=== PATIENT | male | born 1960 | race Caucasian/White ===

== ENCOUNTER 2018-07-26 22:58 | Inpatient (IN) | payer OTHER ==
[2018-07-27] MEDS ORDERED: ONDANSETRON 4 MG INJ IV (01:00)
[2018-07-27] MEDS ORDERED: ACETAMINOPHEN 325 MG TAB PO (01:00)
[2018-07-27] MEDS ORDERED: VANCOMYCIN IV PER PHARMACY XX (01:00)
[2018-07-27] MEDS: RANITIDINE 150 MG TAB PO ×3 (02:18→20:12)
[2018-07-27] MEDS: NICOTINE (21 MG/24 HR) PATCH TRANSDERM (04:28)
[2018-07-27] MEDS: VANCOMYCIN HCL 1.5 GM in SOD CHLORIDE 0.9% 250 ML IVPB (04:29)
[2018-07-27] MEDS: SOD CHLORIDE 0.45% 1,000 ML IV ×3 (04:29→20:12)
[2018-07-27] MEDS: HYDROCODONE/APAP (5/325) TAB PO ×2 (05:10→18:24)
[2018-07-27] MEDS: LORAZEPAM 2 MG INJ IV (05:54)
[2018-07-27 06:13] LABS: ADD MAN DIFF? NO
[2018-07-27 06:19] LABS: WHITE BLOOD COUNT 18.8 10^3/ul (4.8-10.8)
[2018-07-27 06:19] LABS: BASOPHIL # 0.1 10^3/ul (0.0-0.1); BASOPHILS % 0.4 % (0.0-2.0); EOSINOPHILS # 0.2 10^3/ul (0.0-0.5); EOSINOPHILS % 0.8 % (0.0-7.0); HEMATOCRIT 25.8 % (42.0-52.0); HEMOGLOBIN 8.4 g/dl (14.0-18.0); LYMPHOCYTES # 2.3 10^3/ul (0.8-2.9); LYMPHOCYTES % 12.2 % (15.0-51.0); MEAN CORPUSCULAR HEMOGLOBIN 26.8 pg (29.0-33.0); MEAN CORPUSCULAR HGB CONC 32.6 g/dl (32.0-37.0); MEAN CORPUSCULAR VOLUME 82.2 fl (82.0-101.0); MEAN PLATELET VOLUME 10.6 fl (7.4-10.4); MONOCYTE # 1.4 10^3/ul (0.3-0.9); MONOCYTES % 7.6 % (0.0-11.0); NEUTROPHIL # 14.5 10^3/ul (1.6-7.5); NEUTROPHILS % 77.1 % (39.0-77.0); PLATELET COUNT 432 10^3/UL (140-415); RED BLOOD COUNT 3.14 10^6/ul (4.70-6.10); RED CELL DISTRIBUTION WIDTH 13.7 % (11.5-14.5)
[2018-07-27 07:09] LABS: CHOLESTEROL 80 mg/dl (100-200)
[2018-07-27 07:09] LABS: CHOL/HDL RATIO 6.6 RATIO; HDL CHOLESTEROL 12 mg/dl (28-71); LDL CHOLESTEROL,CALCULATED 48 mg/dl; TRIGLYCERIDES 101 mg/dl (0-149)
[2018-07-27 07:49] LABS: B-TYPE NATRIURETIC PEPTIDE 214 PG/ML (0-125); THYROID STIMULATING HORMONE < 0.015 MIU/L (0.465-4.680)
[2018-07-27 08:37] LABS: HEMOGLOBIN A1C 5.6 % (0-5.9)
[2018-07-27] MEDS ORDERED: AZTREONAM 2 GM in SOD CHLORIDE 0.9% 100 ML IVPB (09:00)
[2018-07-27] MEDS: AZTREONAM 2 GM in SOD CHLORIDE 0.9% 100 ML IVPB (09:02)
[2018-07-27 09:12] LABS: BLOOD UREA NITROGEN 47 mg/dl (7-20)
[2018-07-27 09:12] LABS: CREATININE 2.44 mg/dl (0.61-1.24)
[2018-07-27] MEDS: MEROPENEM 1 GM/50ML(PMX) 50 ML IVPB ×2 (12:35→20:12)
[2018-07-27 13:39] LABS: IRON 20 ug/dl (35-150)
[2018-07-27 13:49] LABS: % IRON SATURATION 11 % SAT (22-52); TOTAL IRON BINDING CAPACITY 188 ug/dl (241-421)
[2018-07-27 14:09] LABS: HEPATITIS B SURFACE ANTIGEN NEGATIVE (NEGATIVE)
[2018-07-27 14:26] LABS: HEPATITIS C VIRAL ANTIBODY NEGATIVE (NEGATIVE)
[2018-07-27 14:58] LABS: RAPID PLASMA REAGIN NONREACTIVE (NR)
[2018-07-27 20:27] LABS: AMPHETAMINE/METHAMPHETAMINE Positive (NEGATIVE); BARBITURATES Negative (NEGATIVE); BENZODIAZEPINES Negative (NEGATIVE); OPIATES Negative (NEGATIVE)
[2018-07-27 21:04] LABS: COCAINE Positive (NEGATIVE)
[2018-07-27 22:15] LABS: CANNABINOIDS Negative (NEGATIVE)
[2018-07-28] MEDS: VANCOMYCIN 1 GM 250 ML IVPB (05:15)
[2018-07-28 06:10] LABS: ADD MAN DIFF? NO
[2018-07-28 06:32] LABS: BASOPHIL # 0.1 10^3/ul (0.0-0.1); BASOPHILS % 0.5 % (0.0-2.0); EOSINOPHILS # 0.2 10^3/ul (0.0-0.5); EOSINOPHILS % 1.5 % (0.0-7.0); HEMATOCRIT 26.2 % (42.0-52.0); HEMOGLOBIN 8.5 g/dl (14.0-18.0); LYMPHOCYTES # 2.3 10^3/ul (0.8-2.9); MEAN CORPUSCULAR HEMOGLOBIN 27.2 pg (29.0-33.0); MEAN CORPUSCULAR HGB CONC 32.4 g/dl (32.0-37.0); MEAN CORPUSCULAR VOLUME 83.7 fl (82.0-101.0); MEAN PLATELET VOLUME 10.6 fl (7.4-10.4); MONOCYTE # 1.3 10^3/ul (0.3-0.9); MONOCYTES % 8.6 % (0.0-11.0); NEUTROPHIL # 10.8 10^3/ul (1.6-7.5); NEUTROPHILS % 72.4 % (39.0-77.0); PLATELET COUNT 450 10^3/UL (140-415); RED BLOOD COUNT 3.13 10^6/ul (4.70-6.10); RED CELL DISTRIBUTION WIDTH 13.8 % (11.5-14.5)
[2018-07-28 07:39] LABS: ALANINE AMINOTRANSFERASE 20 IU/L (13-69); ALBUMIN 2.7 g/dl (3.3-4.9); ALBUMIN/GLOBULIN RATIO 0.84; ALKALINE PHOSPHATASE 107 IU/L (42-121); ANION GAP 7 (5-13); ASPARTATE AMINO TRANSFERASE 18 IU/L (15-46); BILIRUBIN,INDIRECT 0.2 mg/dl (0-1.1); BILIRUBIN,TOTAL 0.2 mg/dl (0.2-1.3); BLOOD UREA NITROGEN 42 mg/dl (7-20); CALCIUM 8.7 mg/dl (8.4-10.2); CARBON DIOXIDE 25 mmol/L (21-31); CHLORIDE 106 mmol/L (97-110); CREATININE 2.02 mg/dl (0.61-1.24); Estimated GFR 34 mL/min (>60); GLUCOSE 139 mg/dl (70-220); POTASSIUM 4.8 mmol/L (3.5-5.1); SODIUM 138 mmol/L (135-144); TOTAL PROTEIN 5.9 g/dl (6.1-8.1)
[2018-07-28] MEDS ORDERED: LACTATED RINGER'S 500 ML IV (08:30)
[2018-07-28] MEDS: LACTATED RINGER'S 500 ML IV (08:35)
[2018-07-28] MEDS: MEROPENEM 1 GM/50ML(PMX) 50 ML IVPB ×2 (08:53→20:02)
[2018-07-28] MEDS: SOD CHLORIDE 0.45% 1,000 ML IV ×2 (08:53→17:00)
[2018-07-28] MEDS: NICOTINE (21 MG/24 HR) PATCH TRANSDERM (08:55)
[2018-07-28] MEDS: RANITIDINE 150 MG TAB PO ×2 (08:55→20:02)
[2018-07-28 09:23] LABS: ERYTHROCYTE SEDIMENTATION RATE 116 mm/Hr (0-20)
[2018-07-28] MEDS: HYDROCODONE/APAP (5/325) TAB PO (20:02)
[2018-07-29] MEDS: SOD CHLORIDE 0.45% 1,000 ML IV ×4 (03:25→23:00)
[2018-07-29 06:07] LABS: ADD MAN DIFF? NO
[2018-07-29 06:19] LABS: BASOPHIL # 0.1 10^3/ul (0.0-0.1); BASOPHILS % 0.6 % (0.0-2.0); EOSINOPHILS # 0.4 10^3/ul (0.0-0.5); EOSINOPHILS % 2.4 % (0.0-7.0); HEMATOCRIT 26.7 % (42.0-52.0); HEMOGLOBIN 8.7 g/dl (14.0-18.0); LYMPHOCYTES # 2.6 10^3/ul (0.8-2.9); LYMPHOCYTES % 16.5 % (15.0-51.0); MEAN CORPUSCULAR HEMOGLOBIN 26.7 pg (29.0-33.0); MEAN CORPUSCULAR HGB CONC 32.6 g/dl (32.0-37.0); MEAN CORPUSCULAR VOLUME 81.9 fl (82.0-101.0); MEAN PLATELET VOLUME 10.2 fl (7.4-10.4); MONOCYTE # 1.5 10^3/ul (0.3-0.9); MONOCYTES % 9.4 % (0.0-11.0); NEUTROPHIL # 10.7 10^3/ul (1.6-7.5); NEUTROPHILS % 68.2 % (39.0-77.0); PLATELET COUNT 489 10^3/UL (140-415); RED BLOOD COUNT 3.26 10^6/ul (4.70-6.10); RED CELL DISTRIBUTION WIDTH 13.7 % (11.5-14.5)
[2018-07-29 06:19] LABS: WHITE BLOOD COUNT 15.6 10^3/ul (4.8-10.8)
[2018-07-29 06:51] LABS: ALANINE AMINOTRANSFERASE 25 IU/L (13-69); ALBUMIN 2.8 g/dl (3.3-4.9); ALBUMIN/GLOBULIN RATIO 0.75; ALKALINE PHOSPHATASE 107 IU/L (42-121); ANION GAP 8 (5-13); ASPARTATE AMINO TRANSFERASE 17 IU/L (15-46); BILIRUBIN,INDIRECT 0.2 mg/dl (0-1.1); BILIRUBIN,TOTAL 0.2 mg/dl (0.2-1.3); BLOOD UREA NITROGEN 36 mg/dl (7-20); CALCIUM 8.9 mg/dl (8.4-10.2); CARBON DIOXIDE 25 mmol/L (21-31); CHLORIDE 106 mmol/L (97-110); CREATININE 1.89 mg/dl (0.61-1.24); Estimated GFR 37 mL/min (>60); GLUCOSE 105 mg/dl (70-220); POTASSIUM 5.1 mmol/L (3.5-5.1); SODIUM 139 mmol/L (135-144); TOTAL PROTEIN 6.5 g/dl (6.1-8.1)
[2018-07-29] MEDS: RANITIDINE 150 MG TAB PO ×2 (09:42→21:41)
[2018-07-29] MEDS: NICOTINE (21 MG/24 HR) PATCH TRANSDERM (09:42)
[2018-07-29] MEDS: MEROPENEM 1 GM/50ML(PMX) 50 ML IVPB ×2 (09:43→21:41)
[2018-07-29] MEDS: HYDROCODONE/APAP (5/325) TAB PO ×2 (09:54→21:53)
[2018-07-29] MEDS ORDERED: CALAMINE/PRAMOXINE LOT 180 ML BTL TOP (11:30)
[2018-07-29] MEDS: CLOTRIMAZOLE 1% 30 GM CR TOP (21:52)
[2018-07-30] MEDS: SOD CHLORIDE 0.45% 1,000 ML IV ×3 (05:39→19:00)
[2018-07-30 05:50] LABS: ADD MAN DIFF? NO
[2018-07-30 05:52] LABS: ABNORMAL IP MESSAGE 1; BASOPHIL # 0.1 10^3/ul (0.0-0.1); BASOPHILS % 0.7 % (0.0-2.0); EOSINOPHILS # 0.4 10^3/ul (0.0-0.5); EOSINOPHILS % 2.6 % (0.0-7.0); HEMATOCRIT 28.1 % (42.0-52.0); HEMOGLOBIN 8.9 g/dl (14.0-18.0); LYMPHOCYTES # 2.6 10^3/ul (0.8-2.9); LYMPHOCYTES % 17.1 % (15.0-51.0); MEAN CORPUSCULAR HEMOGLOBIN 26.5 pg (29.0-33.0); MEAN CORPUSCULAR HGB CONC 31.7 g/dl (32.0-37.0); MEAN CORPUSCULAR VOLUME 83.6 fl (82.0-101.0); MEAN PLATELET VOLUME 9.9 fl (7.4-10.4); MONOCYTE # 1.5 10^3/ul (0.3-0.9); NEUTROPHIL # 10.2 10^3/ul (1.6-7.5); NEUTROPHILS % 66.7 % (39.0-77.0); PLATELET COUNT 495 10^3/UL (140-415); POSITIVE DIFF @See below; RED BLOOD COUNT 3.36 10^6/ul (4.70-6.10); RED CELL DISTRIBUTION WIDTH 13.7 % (11.5-14.5)
[2018-07-30 05:52] LABS: WHITE BLOOD COUNT 15.3 10^3/ul (4.8-10.8)
[2018-07-30 06:19] LABS: ALBUMIN 2.7 g/dl (3.3-4.9); ANION GAP 7 (5-13); BLOOD UREA NITROGEN 33 mg/dl (7-20); CALCIUM 9.1 mg/dl (8.4-10.2); CARBON DIOXIDE 26 mmol/L (21-31); CHLORIDE 105 mmol/L (97-110); CREATININE 1.97 mg/dl (0.61-1.24); GLUCOSE 102 mg/dl (70-220); MAGNESIUM 1.9 mg/dl (1.7-2.5); PHOSPHORUS 4.4 mg/dl (2.5-4.9); POTASSIUM 5.3 mmol/L (3.5-5.1); SODIUM 138 mmol/L (135-144)
[2018-07-30] MEDS: RANITIDINE 150 MG TAB PO ×2 (08:14→21:17)
[2018-07-30] MEDS: NICOTINE (21 MG/24 HR) PATCH TRANSDERM (08:14)
[2018-07-30] MEDS: CLOTRIMAZOLE 1% 30 GM CR TOP ×2 (08:14→21:17)
[2018-07-30] MEDS: MEROPENEM 1 GM/50ML(PMX) 50 ML IVPB ×2 (08:14→21:17)
[2018-07-30] MEDS: DEXTROSE 50% 50 ML SYRINGE IV (10:19)
[2018-07-30] MEDS: INSULIN REGULAR, HUMAN 100 UNIT/1 ML 3ML VIAL IVP (10:28)
[2018-07-30] MEDS: LORAZEPAM 2 MG INJ IV (22:30)
[2018-07-31] MEDS: SOD CHLORIDE 0.45% 1,000 ML IV ×3 (05:22→21:44)
[2018-07-31 06:22] LABS: ADD MAN DIFF? NO
[2018-07-31 06:42] LABS: ALBUMIN 3.1 g/dl (3.3-4.9); ANION GAP 7 (5-13); BASOPHIL # 0.1 10^3/ul (0.0-0.1); BASOPHILS % 0.7 % (0.0-2.0); BLOOD UREA NITROGEN 35 mg/dl (7-20); CALCIUM 9.4 mg/dl (8.4-10.2); CARBON DIOXIDE 25 mmol/L (21-31); CHLORIDE 106 mmol/L (97-110); CREATININE 1.82 mg/dl (0.61-1.24); EOSINOPHILS # 0.4 10^3/ul (0.0-0.5); EOSINOPHILS % 2.3 % (0.0-7.0); GLUCOSE 116 mg/dl (70-220); HEMATOCRIT 29.1 % (42.0-52.0); HEMOGLOBIN 9.3 g/dl (14.0-18.0); LYMPHOCYTES % 19.2 % (15.0-51.0); MEAN CORPUSCULAR HEMOGLOBIN 26.6 pg (29.0-33.0); MEAN CORPUSCULAR VOLUME 83.1 fl (82.0-101.0); MONOCYTE # 1.4 10^3/ul (0.3-0.9); MONOCYTES % 8.8 % (0.0-11.0); NEUTROPHIL # 10.4 10^3/ul (1.6-7.5); NEUTROPHILS % 65.8 % (39.0-77.0); PHOSPHORUS 4.1 mg/dl (2.5-4.9); PLATELET COUNT 502 10^3/UL (140-415); POTASSIUM 4.7 mmol/L (3.5-5.1); RED CELL DISTRIBUTION WIDTH 13.8 % (11.5-14.5); SODIUM 138 mmol/L (135-144)
[2018-07-31 06:42] LABS: WHITE BLOOD COUNT 15.8 10^3/ul (4.8-10.8)
[2018-07-31] MEDS: RANITIDINE 150 MG TAB PO ×2 (08:07→22:23)
[2018-07-31] MEDS: NICOTINE (21 MG/24 HR) PATCH TRANSDERM (08:07)
[2018-07-31] MEDS: CLOTRIMAZOLE 1% 30 GM CR TOP ×2 (08:07→21:00)
[2018-07-31] MEDS: MEROPENEM 1 GM/50ML(PMX) 50 ML IVPB ×2 (08:07→21:44)
[2018-07-31] MEDS ORDERED: NICOTINE POLACRILEX 4 MG GUM BUCCAL (10:30)
[2018-07-31] MEDS: LORAZEPAM 2 MG INJ IV (22:26)
[2018-08-01] MEDS: CLOTRIMAZOLE 1% 30 GM CR TOP ×2 (08:13→21:28)
[2018-08-01] MEDS: RANITIDINE 150 MG TAB PO ×2 (08:14→21:28)
[2018-08-01] MEDS: MEROPENEM 1 GM/50ML(PMX) 50 ML IVPB ×2 (08:14→21:28)
[2018-08-01] MEDS: NICOTINE (21 MG/24 HR) PATCH TRANSDERM (08:19)
[2018-08-01 08:36] LABS: ADD MAN DIFF? NO
[2018-08-01 08:38] LABS: WHITE BLOOD COUNT 16.6 10^3/ul (4.8-10.8)
[2018-08-01 08:38] LABS: ABNORMAL IP MESSAGE 1; BASOPHIL # 0.1 10^3/ul (0.0-0.1); BASOPHILS % 0.8 % (0.0-2.0); EOSINOPHILS # 0.3 10^3/ul (0.0-0.5); EOSINOPHILS % 1.6 % (0.0-7.0); HEMATOCRIT 29.3 % (42.0-52.0); HEMOGLOBIN 9.5 g/dl (14.0-18.0); LYMPHOCYTES # 3.2 10^3/ul (0.8-2.9); LYMPHOCYTES % 19.3 % (15.0-51.0); MEAN CORPUSCULAR HEMOGLOBIN 26.8 pg (29.0-33.0); MEAN CORPUSCULAR HGB CONC 32.4 g/dl (32.0-37.0); MEAN CORPUSCULAR VOLUME 82.5 fl (82.0-101.0); MEAN PLATELET VOLUME 10.1 fl (7.4-10.4); MONOCYTE # 1.7 10^3/ul (0.3-0.9); MONOCYTES % 10.2 % (0.0-11.0); NEUTROPHIL # 10.9 10^3/ul (1.6-7.5); NEUTROPHILS % 65.4 % (39.0-77.0); PLATELET COUNT 464 10^3/UL (140-415); POSITIVE DIFF @See below; RED BLOOD COUNT 3.55 10^6/ul (4.70-6.10); RED CELL DISTRIBUTION WIDTH 14.2 % (11.5-14.5)
[2018-08-01 09:04] LABS: ALBUMIN 3.2 g/dl (3.3-4.9); ANION GAP 7 (5-13); BLOOD UREA NITROGEN 38 mg/dl (7-20); CALCIUM 9.7 mg/dl (8.4-10.2); CARBON DIOXIDE 26 mmol/L (21-31); CHLORIDE 105 mmol/L (97-110); CREATININE 2.02 mg/dl (0.61-1.24); GLUCOSE 112 mg/dl (70-220); MAGNESIUM 2.1 mg/dl (1.7-2.5); PHOSPHORUS 4.5 mg/dl (2.5-4.9); POTASSIUM 4.8 mmol/L (3.5-5.1); SODIUM 138 mmol/L (135-144)
[2018-08-01] MEDS: SOD CHLORIDE 0.45% 1,000 ML IV ×2 (12:00→18:13)
[2018-08-01] MEDS ORDERED: BISACODYL (EC) 5 MG TAB PO (15:00)
[2018-08-01] MEDS: MULTIVITAMINS THERAPEUTIC TAB PO (21:27)
[2018-08-01] MEDS: LACTOBACILLUS RHAMNOSUS CAP PO (21:28)
[2018-08-01] MEDS: LORAZEPAM 2 MG INJ IV (21:35)
[2018-08-02] MEDS: SOD CHLORIDE 0.45% 1,000 ML IV ×2 (05:19→18:15)
[2018-08-02 07:30] LABS: ADD MAN DIFF? NO
[2018-08-02 07:31] LABS: WHITE BLOOD COUNT 14.1 10^3/ul (4.8-10.8)
[2018-08-02 07:31] LABS: ABNORMAL IP MESSAGE 1; BASOPHIL # 0.1 10^3/ul (0.0-0.1); BASOPHILS % 0.8 % (0.0-2.0); EOSINOPHILS # 0.3 10^3/ul (0.0-0.5); EOSINOPHILS % 1.8 % (0.0-7.0); HEMOGLOBIN 9.1 g/dl (14.0-18.0); LYMPHOCYTES % 20.9 % (15.0-51.0); MEAN CORPUSCULAR HEMOGLOBIN 25.9 pg (29.0-33.0); MEAN CORPUSCULAR HGB CONC 31.4 g/dl (32.0-37.0); MEAN CORPUSCULAR VOLUME 82.6 fl (82.0-101.0); MEAN PLATELET VOLUME 10.1 fl (7.4-10.4); MONOCYTE # 1.5 10^3/ul (0.3-0.9); MONOCYTES % 10.7 % (0.0-11.0); NEUTROPHIL # 8.9 10^3/ul (1.6-7.5); NEUTROPHILS % 62.8 % (39.0-77.0); PLATELET COUNT 406 10^3/UL (140-415); POSITIVE DIFF @See below; RED BLOOD COUNT 3.51 10^6/ul (4.70-6.10); RED CELL DISTRIBUTION WIDTH 14.3 % (11.5-14.5)
[2018-08-02 07:48] LABS: ANION GAP 8 (5-13); BLOOD UREA NITROGEN 36 mg/dl (7-20); CALCIUM 9.4 mg/dl (8.4-10.2); CARBON DIOXIDE 25 mmol/L (21-31); CHLORIDE 106 mmol/L (97-110); CREATININE 1.77 mg/dl (0.61-1.24); Estimated GFR 40 mL/min (>60); GLUCOSE 111 mg/dl (70-220); POTASSIUM 4.5 mmol/L (3.5-5.1); SODIUM 139 mmol/L (135-144)
[2018-08-02 07:50] LABS: INR 0.96; PROTIME 12.9 Sec (11.9-14.9)
[2018-08-02] MEDS: LACTOBACILLUS RHAMNOSUS CAP PO ×2 (09:10→21:07)
[2018-08-02] MEDS: RANITIDINE 150 MG TAB PO ×2 (09:11→21:07)
[2018-08-02] MEDS: SENNA/DOCUSATE NA (8.6MG/50MG) TAB PO (09:11)
[2018-08-02] MEDS: MULTIVITAMINS THERAPEUTIC TAB PO (09:11)
[2018-08-02] MEDS: NICOTINE (21 MG/24 HR) PATCH TRANSDERM (09:13)
[2018-08-02] MEDS: ENOXAPARIN 30 MG/0.3 ML SYG SC (09:20)
[2018-08-02] MEDS: MEROPENEM 1 GM/50ML(PMX) 50 ML IVPB ×2 (09:22→21:07)
[2018-08-02] MEDS: CLOTRIMAZOLE 1% 30 GM CR TOP ×2 (09:25→21:00)
[2018-08-02] MEDS: NICOTINE POLACRILEX 2 MG GUM BUCCAL (17:31)
[2018-08-02] MEDS: LORAZEPAM 2 MG INJ IV (23:42)
[2018-08-03] MEDS: SOD CHLORIDE 0.45% 1,000 ML IV ×2 (05:53→14:00)
[2018-08-03] MEDS: LACTOBACILLUS RHAMNOSUS CAP PO ×2 (09:39→21:27)
[2018-08-03] MEDS: RANITIDINE 150 MG TAB PO ×2 (09:40→21:27)
[2018-08-03] MEDS: NICOTINE (21 MG/24 HR) PATCH TRANSDERM (09:40)
[2018-08-03] MEDS: MULTIVITAMINS THERAPEUTIC TAB PO (09:40)
[2018-08-03] MEDS: SENNA/DOCUSATE NA (8.6MG/50MG) TAB PO (09:40)
[2018-08-03] MEDS: MEROPENEM 1 GM/50ML(PMX) 50 ML IVPB ×2 (09:40→21:34)
[2018-08-03] MEDS: CLOTRIMAZOLE 1% 30 GM CR TOP ×2 (09:41→21:54)
[2018-08-03] MEDS: ENOXAPARIN 30 MG/0.3 ML SYG SC (09:41)
[2018-08-03] MEDS: LORAZEPAM 2 MG INJ IV (21:35)
[2018-08-04] MEDS: LACTOBACILLUS RHAMNOSUS CAP PO ×2 (08:12→20:49)
[2018-08-04] MEDS: RANITIDINE 150 MG TAB PO ×2 (08:12→20:49)
[2018-08-04] MEDS: NICOTINE (21 MG/24 HR) PATCH TRANSDERM (08:12)
[2018-08-04] MEDS: MEROPENEM 1 GM/50ML(PMX) 50 ML IVPB ×2 (08:12→20:49)
[2018-08-04] MEDS: MULTIVITAMINS THERAPEUTIC TAB PO (08:12)
[2018-08-04] MEDS: CLOTRIMAZOLE 1% 30 GM CR TOP ×2 (08:13→20:50)
[2018-08-04] MEDS: ENOXAPARIN 30 MG/0.3 ML SYG SC (08:14)
[2018-08-04] MEDS: LORAZEPAM 2 MG INJ IV ×2 (09:52→21:45)
[2018-08-04] MEDS: HYDROCODONE/APAP (5/325) TAB PO (17:25)
[2018-08-05] MEDS: ENOXAPARIN 30 MG/0.3 ML SYG SC (09:00)
[2018-08-05] MEDS: CLOTRIMAZOLE 1% 30 GM CR TOP ×2 (09:18→20:18)
[2018-08-05] MEDS: LACTOBACILLUS RHAMNOSUS CAP PO ×2 (09:18→20:18)
[2018-08-05] MEDS: RANITIDINE 150 MG TAB PO ×2 (09:18→20:18)
[2018-08-05] MEDS: MEROPENEM 1 GM/50ML(PMX) 50 ML IVPB ×2 (09:18→20:18)
[2018-08-05] MEDS: NICOTINE (21 MG/24 HR) PATCH TRANSDERM (09:18)
[2018-08-05] MEDS: MULTIVITAMINS THERAPEUTIC TAB PO (09:18)
[2018-08-05] MEDS: LIDOCAINE 1% (MDV) 20 ML INJ (11:00)
[2018-08-05] MEDS: HYDROCODONE/APAP (5/325) TAB PO (14:44)
[2018-08-06 07:18] LABS: ADD MAN DIFF? NO
[2018-08-06 07:31] LABS: BASOPHIL # 0.1 10^3/ul (0.0-0.1); EOSINOPHILS # 0.4 10^3/ul (0.0-0.5); HEMOGLOBIN 9.7 g/dl (14.0-18.0); LYMPHOCYTES # 3.6 10^3/ul (0.8-2.9); LYMPHOCYTES % 25.2 % (15.0-51.0); MEAN CORPUSCULAR HEMOGLOBIN 26.1 pg (29.0-33.0); MEAN CORPUSCULAR HGB CONC 31.3 g/dl (32.0-37.0); MEAN CORPUSCULAR VOLUME 83.6 fl (82.0-101.0); MEAN PLATELET VOLUME 10.6 fl (7.4-10.4); MONOCYTE # 1.4 10^3/ul (0.3-0.9); NEUTROPHIL # 8.3 10^3/ul (1.6-7.5); NEUTROPHILS % 58.8 % (39.0-77.0); PLATELET COUNT 332 10^3/UL (140-415); RED BLOOD COUNT 3.71 10^6/ul (4.70-6.10); RED CELL DISTRIBUTION WIDTH 14.4 % (11.5-14.5)
[2018-08-06 07:31] LABS: WHITE BLOOD COUNT 14.2 10^3/ul (4.8-10.8)
[2018-08-06 07:43] LABS: ANION GAP 7 (5-13); BLOOD UREA NITROGEN 42 mg/dl (7-20); CALCIUM 9.5 mg/dl (8.4-10.2); CARBON DIOXIDE 27 mmol/L (21-31); CHLORIDE 105 mmol/L (97-110); CREATININE 1.91 mg/dl (0.61-1.24); Estimated GFR 36 mL/min (>60); GLUCOSE 117 mg/dl (70-220); MAGNESIUM 1.9 mg/dl (1.7-2.5); POTASSIUM 4.2 mmol/L (3.5-5.1); SODIUM 139 mmol/L (135-144)
[2018-08-06] MEDS: NICOTINE (21 MG/24 HR) PATCH TRANSDERM (08:13)
[2018-08-06] MEDS: CLOTRIMAZOLE 1% 30 GM CR TOP ×2 (08:14→20:39)
[2018-08-06] MEDS: MULTIVITAMINS THERAPEUTIC TAB PO (08:14)
[2018-08-06] MEDS: RANITIDINE 150 MG TAB PO ×2 (08:14→20:10)
[2018-08-06] MEDS: MEROPENEM 1 GM/50ML(PMX) 50 ML IVPB ×2 (08:14→20:10)
[2018-08-06] MEDS: LACTOBACILLUS RHAMNOSUS CAP PO ×2 (08:14→20:10)
[2018-08-06 15:23] LABS: ADD UMIC YES; UR ASCORBIC ACID NEGATIVE (NEGATIVE); UR BILIRUBIN (Dip) NEGATIVE (NEGATIVE); UR BLOOD (Dip) NEGATIVE (NEGATIVE); UR CLARITY SLIGHTLY CLOUDY (CLEAR); UR COLOR YELLOW (YELLOW); UR GLUCOSE (Dip) NEGATIVE (NEGATIVE); UR KETONES (Dip) NEGATIVE (NEGATIVE); UR LEUKOCYTE ESTERASE (Dip) TRACE Leu/ul (NEGATIVE); UR NITRITE (Dip) NEGATIVE (NEGATIVE); UR RBC 1 /HPF (0-5); UR SPECIFIC GRAVITY (Dip) 1.012 (1.003-1.030); UR TOTAL PROTEIN (Dip) NEGATIVE (NEGATIVE); UR UROBILINOGEN (Dip) NEGATIVE (NEGATIVE); UR WBC 13 /HPF (0-5)
[2018-08-06 15:31] LABS: CREATININE,URINE RANDOM 52.11 mg/dl (20-370)
[2018-08-06 15:31] LABS: SODIUM,URINE RANDOM 89 mmol/L (30-90)
[2018-08-06] MEDS: LORAZEPAM 2 MG INJ IV (22:23)
[2018-08-07] MEDS: HYDROCODONE/APAP (5/325) TAB PO (03:40)
[2018-08-07 05:52] LABS: ADD MAN DIFF? NO
[2018-08-07 05:55] LABS: WHITE BLOOD COUNT 14.1 10^3/ul (4.8-10.8)
[2018-08-07 05:55] LABS: ABNORMAL IP MESSAGE 1; BASOPHIL # 0.1 10^3/ul (0.0-0.1); EOSINOPHILS # 0.5 10^3/ul (0.0-0.5); EOSINOPHILS % 3.7 % (0.0-7.0); HEMATOCRIT 30.4 % (42.0-52.0); HEMOGLOBIN 9.5 g/dl (14.0-18.0); LYMPHOCYTES # 3.6 10^3/ul (0.8-2.9); LYMPHOCYTES % 25.7 % (15.0-51.0); MEAN CORPUSCULAR HEMOGLOBIN 26.2 pg (29.0-33.0); MEAN CORPUSCULAR HGB CONC 31.3 g/dl (32.0-37.0); MEAN CORPUSCULAR VOLUME 83.7 fl (82.0-101.0); MEAN PLATELET VOLUME 10.8 fl (7.4-10.4); MONOCYTE # 1.7 10^3/ul (0.3-0.9); MONOCYTES % 11.9 % (0.0-11.0); NEUTROPHIL # 7.9 10^3/ul (1.6-7.5); NEUTROPHILS % 55.7 % (39.0-77.0); PLATELET COUNT 325 10^3/UL (140-415); POSITIVE DIFF @See below; RED BLOOD COUNT 3.63 10^6/ul (4.70-6.10); RED CELL DISTRIBUTION WIDTH 14.1 % (11.5-14.5)
[2018-08-07 06:24] LABS: ANION GAP 8 (5-13); BLOOD UREA NITROGEN 43 mg/dl (7-20); CALCIUM 9.5 mg/dl (8.4-10.2); CARBON DIOXIDE 27 mmol/L (21-31); CHLORIDE 105 mmol/L (97-110); CREATININE 1.74 mg/dl (0.61-1.24); Estimated GFR 41 mL/min (>60); GLUCOSE 106 mg/dl (70-220); PHOSPHORUS 4.3 mg/dl (2.5-4.9); POTASSIUM 4.7 mmol/L (3.5-5.1); SODIUM 140 mmol/L (135-144)
[2018-08-07] MEDS: MULTIVITAMINS THERAPEUTIC TAB PO (08:09)
[2018-08-07] MEDS: NICOTINE (21 MG/24 HR) PATCH TRANSDERM (08:09)
[2018-08-07] MEDS: RANITIDINE 150 MG TAB PO ×2 (08:09→20:17)
[2018-08-07] MEDS: LACTOBACILLUS RHAMNOSUS CAP PO ×2 (08:09→20:17)
[2018-08-07] MEDS: MEROPENEM 1 GM/50ML(PMX) 50 ML IVPB ×2 (08:10→20:17)
[2018-08-07] MEDS: CLOTRIMAZOLE 1% 30 GM CR TOP ×2 (08:26→20:18)
[2018-08-08] MEDS: HYDROCODONE/APAP (5/325) TAB PO (03:21)
[2018-08-08 06:38] LABS: ADD MAN DIFF? NO
[2018-08-08 06:42] LABS: ABNORMAL IP MESSAGE 1; BASOPHIL # 0.2 10^3/ul (0.0-0.1); BASOPHILS % 1.4 % (0.0-2.0); EOSINOPHILS # 0.5 10^3/ul (0.0-0.5); EOSINOPHILS % 4.3 % (0.0-7.0); HEMATOCRIT 29.9 % (42.0-52.0); HEMOGLOBIN 9.6 g/dl (14.0-18.0); LYMPHOCYTES # 3.7 10^3/ul (0.8-2.9); LYMPHOCYTES % 29.3 % (15.0-51.0); MEAN CORPUSCULAR HEMOGLOBIN 26.5 pg (29.0-33.0); MEAN CORPUSCULAR HGB CONC 32.1 g/dl (32.0-37.0); MEAN CORPUSCULAR VOLUME 82.6 fl (82.0-101.0); MEAN PLATELET VOLUME 10.9 fl (7.4-10.4); MONOCYTE # 1.5 10^3/ul (0.3-0.9); MONOCYTES % 12.1 % (0.0-11.0); NEUTROPHIL # 6.4 10^3/ul (1.6-7.5); NEUTROPHILS % 51.1 % (39.0-77.0); PLATELET COUNT 300 10^3/UL (140-415); POSITIVE DIFF @See below; RED BLOOD COUNT 3.62 10^6/ul (4.70-6.10); RED CELL DISTRIBUTION WIDTH 14.3 % (11.5-14.5)
[2018-08-08 06:42] LABS: WHITE BLOOD COUNT 12.6 10^3/ul (4.8-10.8)
[2018-08-08 07:18] LABS: ANION GAP 7 (5-13); BLOOD UREA NITROGEN 41 mg/dl (7-20); CALCIUM 9.1 mg/dl (8.4-10.2); CARBON DIOXIDE 27 mmol/L (21-31); CHLORIDE 107 mmol/L (97-110); CREATININE 1.63 mg/dl (0.61-1.24); Estimated GFR 44 mL/min (>60); GLUCOSE 113 mg/dl (70-220); MAGNESIUM 2.1 mg/dl (1.7-2.5); PHOSPHORUS 4.6 mg/dl (2.5-4.9); POTASSIUM 4.8 mmol/L (3.5-5.1); SODIUM 141 mmol/L (135-144)
[2018-08-08] MEDS: CLOTRIMAZOLE 1% 30 GM CR TOP ×2 (08:40→21:00)
[2018-08-08] MEDS: MULTIVITAMINS THERAPEUTIC TAB PO (08:40)
[2018-08-08] MEDS: RANITIDINE 150 MG TAB PO ×2 (08:40→21:33)
[2018-08-08] MEDS: NICOTINE (21 MG/24 HR) PATCH TRANSDERM (08:40)
[2018-08-08] MEDS: LACTOBACILLUS RHAMNOSUS CAP PO ×2 (08:40→21:33)
[2018-08-08] MEDS: MEROPENEM 1 GM/50ML(PMX) 50 ML IVPB ×2 (09:18→22:22)
[2018-08-08] MEDS: LORAZEPAM 2 MG INJ IV (10:45)
[2018-08-08 13:37] LABS: CREATININE, RANDOM URINE 56 mg/dL (20-320); MICROALBUMIN 1.3 mg/dL; MICROALBUMIN/CREATININE RATIO 23 (<30)
[2018-08-09] MEDS: LORAZEPAM 2 MG INJ IV (02:02)
[2018-08-09] MEDS: CLOTRIMAZOLE 1% 30 GM CR TOP (08:31)
[2018-08-09] MEDS: RANITIDINE 150 MG TAB PO (08:36)
[2018-08-09] MEDS: NICOTINE (21 MG/24 HR) PATCH TRANSDERM (08:36)
[2018-08-09] MEDS: MULTIVITAMINS THERAPEUTIC TAB PO (08:36)
[2018-08-09] MEDS: LACTOBACILLUS RHAMNOSUS CAP PO (08:36)
[2018-08-09] MEDS: MEROPENEM 1 GM/50ML(PMX) 50 ML IVPB (08:36)
[2018-08-09 08:53] LABS: ANION GAP 10 (5-13); BLOOD UREA NITROGEN 41 mg/dl (7-20); CALCIUM 9.5 mg/dl (8.4-10.2); CARBON DIOXIDE 28 mmol/L (21-31); CHLORIDE 106 mmol/L (97-110); CREATININE 1.74 mg/dl (0.61-1.24); Estimated GFR 41 mL/min (>60); GLUCOSE 99 mg/dl (70-220); MAGNESIUM 2.2 mg/dl (1.7-2.5); PHOSPHORUS 4.6 mg/dl (2.5-4.9); POTASSIUM 4.7 mmol/L (3.5-5.1); SODIUM 144 mmol/L (135-144)
[2018-08-09] MEDS: ALBUTEROL HFA 8 GM INHALER INH (10:06)
== END 2018-08-09 12:55 | disposition home or self-care (01) | DRG 872 ==
LOC: 6WM 22:58 → 5EC 07-31 17:23
PROVIDERS: Internal Medicine
PROC: 0GBG3ZX Excision of Left Thyroid Gland Lobe, Percutaneous Approach, Diagnostic (ICD-10-PCS; principal; 2018-08-05)
PROC: 0GBH3ZX Excision of Right Thyroid Gland Lobe, Percutaneous Approach, Diagnostic (ICD-10-PCS; 2018-08-05)
DX: A41.9 Sepsis, unspecified organism (principal); N39.0 Urinary tract infection, site not specified; N17.9 Acute kidney failure, unspecified; N13.30 Unspecified hydronephrosis; Q54.9 Hypospadias, unspecified; F19.90 Other psychoactive substance use, unspecified, uncomplicated; F17.200 Nicotine dependence, unspecified, uncomplicated; R33.9 Retention of urine, unspecified; J44.9 Chronic obstructive pulmonary disease, unspecified; B96.20 Unspecified Escherichia coli [E. coli] as the cause of diseases classified elsewhere; I12.9 Hypertensive chronic kidney disease with stage 1 through stage 4 chronic kidney disease, or unspecified chronic kidney disease; N18.3 Chronic kidney disease, stage 3 (moderate); D64.9 Anemia, unspecified; K59.00 Constipation, unspecified; E04.9 Nontoxic goiter, unspecified; Z59.0 Homelessness
CPT/HCPCS: 71250; 74018; 76536; 76775; 80048; 80053; 80061; 80069; 80307; 81001; 81003; 82043; 82565; 82728; 82962; 83036; 83540; 83735; 83880; 84100; 84155; 84300; 84443; 84520; 85025; 85610; 85651; 86592; 86800; 86803; 87040-91; 87081; 87086; 87340; 88104; 88305; 88313

== ENCOUNTER 2018-09-23 03:15 | Inpatient (IN) | payer OTHER ==
[2018-09-23 03:50] LABS: ADD MAN DIFF? NO
[2018-09-23 04:03] LABS: WHITE BLOOD COUNT 17.6 10^3/ul (4.8-10.8)
[2018-09-23 04:03] LABS: ABNORMAL IP MESSAGE 1; BASOPHIL # 0.1 10^3/ul (0.0-0.1); BASOPHILS % 0.4 % (0.0-2.0); EOSINOPHILS # 0.2 10^3/ul (0.0-0.5); EOSINOPHILS % 1.4 % (0.0-7.0); HEMATOCRIT 24.9 % (42.0-52.0); HEMOGLOBIN 8.2 g/dl (14.0-18.0); LYMPHOCYTES # 2.8 10^3/ul (0.8-2.9); LYMPHOCYTES % 15.7 % (15.0-51.0); MEAN CORPUSCULAR HEMOGLOBIN 26.1 pg (29.0-33.0); MEAN CORPUSCULAR HGB CONC 32.9 g/dl (32.0-37.0); MEAN CORPUSCULAR VOLUME 79.3 fl (82.0-101.0); MEAN PLATELET VOLUME 10.1 fl (7.4-10.4); MONOCYTE # 1.8 10^3/ul (0.3-0.9); MONOCYTES % 10.3 % (0.0-11.0); NEUTROPHIL # 12.4 10^3/ul (1.6-7.5); NEUTROPHILS % 70.4 % (39.0-77.0); PLATELET COUNT 274 10^3/UL (140-415); POSITIVE DIFF @See below; RED BLOOD COUNT 3.14 10^6/ul (4.70-6.10); RED CELL DISTRIBUTION WIDTH 18.2 % (11.5-14.5)
[2018-09-23 04:04] LABS: ADD UMIC YES; UR ASCORBIC ACID NEGATIVE (NEGATIVE); UR BACTERIA FEW /HPF (NONE SEEN); UR BILIRUBIN (Dip) NEGATIVE (NEGATIVE); UR BLOOD (Dip) 2+ mg/dL (NEGATIVE); UR CLARITY TURBID (CLEAR); UR COLOR YELLOW (YELLOW); UR GLUCOSE (Dip) NEGATIVE (NEGATIVE); UR KETONES (Dip) NEGATIVE (NEGATIVE); UR LEUKOCYTE ESTERASE (Dip) 3+ Leu/ul (NEGATIVE); UR NITRITE (Dip) NEGATIVE (NEGATIVE); UR RBC 68 /HPF (0-5); UR SPECIFIC GRAVITY (Dip) 1.009 (1.003-1.030); UR TOTAL PROTEIN (Dip) 2+ mg/dl (NEGATIVE); UR UROBILINOGEN (Dip) NEGATIVE (NEGATIVE); UR WBC > 182 /HPF (0-5)
[2018-09-23 04:19] LABS: ALANINE AMINOTRANSFERASE 23 IU/L (13-69); ALBUMIN 3.5 g/dl (3.3-4.9); ALBUMIN/GLOBULIN RATIO 0.76; ALKALINE PHOSPHATASE 119 IU/L (42-121); ANION GAP 12 (5-13); ASPARTATE AMINO TRANSFERASE 19 IU/L (15-46); BILIRUBIN,INDIRECT 0.3 mg/dl (0-1.1); BILIRUBIN,TOTAL 0.3 mg/dl (0.2-1.3); BLOOD UREA NITROGEN 59 mg/dl (7-20); CALCIUM 9.5 mg/dl (8.4-10.2); CARBON DIOXIDE 18 mmol/L (21-31); CHLORIDE 105 mmol/L (97-110); CREATININE 5.22 mg/dl (0.61-1.24); Estimated GFR 11 mL/min (>60); GLUCOSE 114 mg/dl (70-220); POTASSIUM 4.8 mmol/L (3.5-5.1); SODIUM 135 mmol/L (135-144); TOTAL PROTEIN 8.1 g/dl (6.1-8.1)
[2018-09-23 04:28] LABS: B-TYPE NATRIURETIC PEPTIDE 158 PG/ML (0-125)
[2018-09-23] MEDS: CIPROFLOXACIN 400MG/D5W 200 ML IVPB (04:57)
[2018-09-23] MEDS ORDERED: ONDANSETRON 4 MG INJ IV ×2 (05:30→06:30)
[2018-09-23] MEDS ORDERED: ACETAMINOPHEN 325 MG TAB PO (05:30)
[2018-09-23] MEDS: SOD CHLORIDE 0.9% 1,000 ML IV ×3 (06:07→21:09)
[2018-09-23] MEDS: HEPARIN 5,000 UNIT/1 ML VIAL SC ×2 (08:44→21:08)
[2018-09-23] MEDS: morphine 2 MG INJ IV (15:03)
[2018-09-23 15:08] LABS: ADD UMIC YES; UR ASCORBIC ACID NEGATIVE (NEGATIVE); UR BACTERIA MANY /HPF (NONE SEEN); UR BILIRUBIN (Dip) NEGATIVE (NEGATIVE); UR BLOOD (Dip) 2+ mg/dL (NEGATIVE); UR CLARITY TURBID (CLEAR); UR COLOR YELLOW (YELLOW); UR GLUCOSE (Dip) NEGATIVE (NEGATIVE); UR KETONES (Dip) NEGATIVE (NEGATIVE); UR LEUKOCYTE ESTERASE (Dip) 3+ Leu/ul (NEGATIVE); UR MUCUS FEW /HPF (NONE SEEN); UR NITRITE (Dip) NEGATIVE (NEGATIVE); UR RBC 25 /HPF (0-5); UR SPECIFIC GRAVITY (Dip) 1.008 (1.003-1.030); UR TOTAL PROTEIN (Dip) 1+ mg/dl (NEGATIVE); UR UROBILINOGEN (Dip) NEGATIVE (NEGATIVE); UR WBC > 182 /HPF (0-5)
[2018-09-23 15:55] LABS: SODIUM,URINE RANDOM 57 mmol/L (30-90)
[2018-09-23 15:55] LABS: POTASSIUM,URINE RANDOM 22.6 mmol/L (25-125)
[2018-09-23 15:57] LABS: SODIUM,URINE RANDOM 57 mmol/L (30-90)
[2018-09-23 15:57] LABS: CREATININE,URINE RANDOM 54.76 mg/dl (20-370)
[2018-09-23] MEDS: RANITIDINE 150 MG TAB PO (16:35)
[2018-09-23] MEDS: NICOTINE (21 MG/24 HR) PATCH TRANSDERM (21:08)
[2018-09-23] MEDS: HYDROCODONE/APAP (10/325) TAB PO (22:20)
[2018-09-23 22:50] LABS: LACTIC ACID 1.5 mmol/L (0.5-2.0)
[2018-09-24] MEDS: SOD CHLORIDE 0.9% 500 ML IV (02:54)
[2018-09-24] MEDS: CIPROFLOXACIN 400MG/D5W 200 ML IVPB (04:30)
[2018-09-24 05:01] LABS: ADD MAN DIFF? NO
[2018-09-24 05:03] LABS: ABNORMAL IP MESSAGE 1; BASOPHILS % 0.2 % (0.0-2.0); EOSINOPHILS # 0.2 10^3/ul (0.0-0.5); EOSINOPHILS % 1.1 % (0.0-7.0); HEMATOCRIT 22.1 % (42.0-52.0); LYMPHOCYTES # 2.1 10^3/ul (0.8-2.9); LYMPHOCYTES % 14.8 % (15.0-51.0); MEAN CORPUSCULAR HEMOGLOBIN 25.1 pg (29.0-33.0); MEAN CORPUSCULAR HGB CONC 31.7 g/dl (32.0-37.0); MEAN CORPUSCULAR VOLUME 79.2 fl (82.0-101.0); MEAN PLATELET VOLUME 10.2 fl (7.4-10.4); MONOCYTE # 1.5 10^3/ul (0.3-0.9); MONOCYTES % 10.6 % (0.0-11.0); NEUTROPHIL # 10.4 10^3/ul (1.6-7.5); NEUTROPHILS % 71.6 % (39.0-77.0); PLATELET COUNT 257 10^3/UL (140-415); POSITIVE DIFF @See below; RED BLOOD COUNT 2.79 10^6/ul (4.70-6.10); RED CELL DISTRIBUTION WIDTH 17.9 % (11.5-14.5)
[2018-09-24 05:03] LABS: WHITE BLOOD COUNT 14.5 10^3/ul (4.8-10.8)
[2018-09-24] MEDS ORDERED: DIPHENHYDRAMINE 50 MG CAP PO (05:30)
[2018-09-24 05:55] LABS: ALANINE AMINOTRANSFERASE 15 IU/L (13-69); ALBUMIN 2.6 g/dl (3.3-4.9); ALBUMIN/GLOBULIN RATIO 0.72; ALKALINE PHOSPHATASE 94 IU/L (42-121); ANION GAP 9 (5-13); ASPARTATE AMINO TRANSFERASE 13 IU/L (15-46); BILIRUBIN,INDIRECT 0.2 mg/dl (0-1.1); BILIRUBIN,TOTAL 0.2 mg/dl (0.2-1.3); BLOOD UREA NITROGEN 51 mg/dl (7-20); CALCIUM 8.2 mg/dl (8.4-10.2); CARBON DIOXIDE 17 mmol/L (21-31); CHLORIDE 109 mmol/L (97-110); CREATININE 4.21 mg/dl (0.61-1.24); Estimated GFR 15 mL/min (>60); GLUCOSE 181 mg/dl (70-220); MAGNESIUM 2.1 mg/dl (1.7-2.5); PHOSPHORUS 4.6 mg/dl (2.5-4.9); POTASSIUM 4.1 mmol/L (3.5-5.1); SODIUM 135 mmol/L (135-144); TOTAL PROTEIN 6.2 g/dl (6.1-8.1)
[2018-09-24] MEDS: SOD CHLORIDE 0.9% 1,000 ML IV ×2 (08:47→15:52)
[2018-09-24] MEDS: HEPARIN 5,000 UNIT/1 ML VIAL SC ×2 (10:20→21:07)
[2018-09-24] MEDS: NICOTINE (21 MG/24 HR) PATCH TRANSDERM (10:20)
[2018-09-24] MEDS: CALCIUM CARBONATE 500 MG CHEW TAB PO ×2 (10:31→16:08)
[2018-09-24] MEDS: HYDROCODONE/APAP (10/325) TAB PO (12:16)
[2018-09-24 15:36] LABS: CREATININE, RANDOM URINE 57 mg/dL (20-320); MICROALBUMIN 9.8 mg/dL; MICROALBUMIN/CREATININE RATIO 172 (<30)
[2018-09-24] MEDS: RANITIDINE 150 MG TAB PO (16:59)
[2018-09-25] MEDS: LORAZEPAM 2 MG INJ IV ×2 (00:32→21:04)
[2018-09-25] MEDS: CIPROFLOXACIN 400MG/D5W 200 ML IVPB (04:26)
[2018-09-25] MEDS: SOD CHLORIDE 0.9% 1,000 ML IV ×2 (05:27→14:29)
[2018-09-25 05:34] LABS: ADD MAN DIFF? NO
[2018-09-25 05:37] LABS: WHITE BLOOD COUNT 14.4 10^3/ul (4.8-10.8)
[2018-09-25 05:37] LABS: BASOPHIL # 0.1 10^3/ul (0.0-0.1); BASOPHILS % 0.4 % (0.0-2.0); EOSINOPHILS # 0.3 10^3/ul (0.0-0.5); EOSINOPHILS % 2.1 % (0.0-7.0); HEMATOCRIT 22.5 % (42.0-52.0); HEMOGLOBIN 7.3 g/dl (14.0-18.0); LYMPHOCYTES # 2.4 10^3/ul (0.8-2.9); LYMPHOCYTES % 16.7 % (15.0-51.0); MEAN CORPUSCULAR HEMOGLOBIN 25.4 pg (29.0-33.0); MEAN CORPUSCULAR HGB CONC 32.4 g/dl (32.0-37.0); MEAN CORPUSCULAR VOLUME 78.4 fl (82.0-101.0); MEAN PLATELET VOLUME 9.8 fl (7.4-10.4); MONOCYTE # 1.4 10^3/ul (0.3-0.9); NEUTROPHIL # 9.9 10^3/ul (1.6-7.5); NEUTROPHILS % 68.8 % (39.0-77.0); PLATELET COUNT 273 10^3/UL (140-415); RED BLOOD COUNT 2.87 10^6/ul (4.70-6.10)
[2018-09-25 06:09] LABS: ANION GAP 9 (5-13); BLOOD UREA NITROGEN 41 mg/dl (7-20); CALCIUM 8.7 mg/dl (8.4-10.2); CARBON DIOXIDE 18 mmol/L (21-31); CHLORIDE 108 mmol/L (97-110); CREATININE 3.59 mg/dl (0.61-1.24); Estimated GFR 18 mL/min (>60); GLUCOSE 113 mg/dl (70-220); MAGNESIUM 1.8 mg/dl (1.7-2.5); PHOSPHORUS 3.7 mg/dl (2.5-4.9); POTASSIUM 4.8 mmol/L (3.5-5.1); SODIUM 135 mmol/L (135-144)
[2018-09-25] MEDS: RANITIDINE 150 MG TAB PO (08:55)
[2018-09-25] MEDS: NICOTINE (21 MG/24 HR) PATCH TRANSDERM (08:55)
[2018-09-25] MEDS: HEPARIN 5,000 UNIT/1 ML VIAL SC ×2 (08:56→21:06)
[2018-09-25 10:02] LABS: IRON < 10 ug/dl (35-150)
[2018-09-25 10:09] LABS: TOTAL IRON BINDING CAPACITY 152 ug/dl (241-421)
[2018-09-25] MEDS: SOD FERRIC GLUC COMPLX 125 MG in SOD CHLORIDE 0.9% 100 ML IVPB (12:38)
[2018-09-25] MEDS ORDERED: MEROPENEM 500MG/50 ML (PMX) 50 ML IVPB (15:00)
[2018-09-25] MEDS: MEROPENEM 500MG/50 ML (PMX) 50 ML IVPB (16:50)
[2018-09-25] MEDS: ALBUTEROL 0.083% (NEB) 2.5 MG/3 ML AMP NEB (19:00)
[2018-09-26 05:17] LABS: ADD MAN DIFF? NO
[2018-09-26 05:22] LABS: WHITE BLOOD COUNT 15.4 10^3/ul (4.8-10.8)
[2018-09-26 05:22] LABS: BASOPHIL # 0.1 10^3/ul (0.0-0.1); BASOPHILS % 0.5 % (0.0-2.0); EOSINOPHILS # 0.2 10^3/ul (0.0-0.5); EOSINOPHILS % 1.5 % (0.0-7.0); HEMATOCRIT 24.4 % (42.0-52.0); HEMOGLOBIN 7.8 g/dl (14.0-18.0); LYMPHOCYTES # 2.5 10^3/ul (0.8-2.9); LYMPHOCYTES % 16.3 % (15.0-51.0); MEAN CORPUSCULAR HEMOGLOBIN 24.9 pg (29.0-33.0); MEAN PLATELET VOLUME 10.1 fl (7.4-10.4); MONOCYTE # 1.4 10^3/ul (0.3-0.9); MONOCYTES % 9.4 % (0.0-11.0); NEUTROPHIL # 10.6 10^3/ul (1.6-7.5); NEUTROPHILS % 68.9 % (39.0-77.0); PLATELET COUNT 320 10^3/UL (140-415); RED BLOOD COUNT 3.13 10^6/ul (4.70-6.10); RED CELL DISTRIBUTION WIDTH 17.9 % (11.5-14.5)
[2018-09-26 05:49] LABS: ANION GAP 7 (5-13); BLOOD UREA NITROGEN 43 mg/dl (7-20); CALCIUM 9.1 mg/dl (8.4-10.2); CARBON DIOXIDE 19 mmol/L (21-31); CHLORIDE 107 mmol/L (97-110); Estimated GFR 18 mL/min (>60); GLUCOSE 128 mg/dl (70-220); PHOSPHORUS 4.1 mg/dl (2.5-4.9); POTASSIUM 4.8 mmol/L (3.5-5.1); SODIUM 133 mmol/L (135-144)
[2018-09-26] MEDS: NICOTINE (21 MG/24 HR) PATCH TRANSDERM (09:19)
[2018-09-26] MEDS: RANITIDINE 150 MG TAB PO (09:19)
[2018-09-26] MEDS: MEROPENEM 500MG/50 ML (PMX) 50 ML IVPB ×2 (09:19→20:57)
[2018-09-26] MEDS: HEPARIN 5,000 UNIT/1 ML VIAL SC ×2 (09:21→21:02)
[2018-09-26] MEDS: SOD CHLORIDE 0.9% 1,000 ML IV ×2 (13:33→21:52)
[2018-09-26] MEDS: SOD FERRIC GLUC COMPLX 125 MG in SOD CHLORIDE 0.9% 100 ML IVPB (14:41)
[2018-09-26] MEDS: LORAZEPAM 2 MG INJ IV (23:38)
[2018-09-27 06:07] LABS: ADD MAN DIFF? NO
[2018-09-27 06:14] LABS: ABNORMAL IP MESSAGE 1; BASOPHIL # 0.1 10^3/ul (0.0-0.1); BASOPHILS % 0.6 % (0.0-2.0); EOSINOPHILS # 0.4 10^3/ul (0.0-0.5); EOSINOPHILS % 2.9 % (0.0-7.0); HEMATOCRIT 25.6 % (42.0-52.0); HEMOGLOBIN 8.2 g/dl (14.0-18.0); LYMPHOCYTES # 2.5 10^3/ul (0.8-2.9); LYMPHOCYTES % 19.2 % (15.0-51.0); MEAN CORPUSCULAR HEMOGLOBIN 25.5 pg (29.0-33.0); MEAN CORPUSCULAR VOLUME 79.5 fl (82.0-101.0); MEAN PLATELET VOLUME 10.2 fl (7.4-10.4); MONOCYTE # 1.3 10^3/ul (0.3-0.9); MONOCYTES % 9.7 % (0.0-11.0); NEUTROPHILS % 61.6 % (39.0-77.0); PLATELET COUNT 351 10^3/UL (140-415); POSITIVE DIFF @See below; RED BLOOD COUNT 3.22 10^6/ul (4.70-6.10); RED CELL DISTRIBUTION WIDTH 18.2 % (11.5-14.5)
[2018-09-27 06:14] LABS: WHITE BLOOD COUNT 12.9 10^3/ul (4.8-10.8)
[2018-09-27 06:45] LABS: ALBUMIN 2.7 g/dl (3.3-4.9); ANION GAP 10 (5-13); BLOOD UREA NITROGEN 45 mg/dl (7-20); CALCIUM 9.4 mg/dl (8.4-10.2); CARBON DIOXIDE 18 mmol/L (21-31); CHLORIDE 109 mmol/L (97-110); CREATININE 3.07 mg/dl (0.61-1.24); GLUCOSE 113 mg/dl (70-220); MAGNESIUM 1.8 mg/dl (1.7-2.5); PHOSPHORUS 4.1 mg/dl (2.5-4.9); SODIUM 137 mmol/L (135-144)
[2018-09-27] MEDS: RANITIDINE 150 MG TAB PO (08:36)
[2018-09-27] MEDS: MEROPENEM 500MG/50 ML (PMX) 50 ML IVPB ×2 (08:36→20:25)
[2018-09-27] MEDS: HEPARIN 5,000 UNIT/1 ML VIAL SC ×2 (08:37→20:30)
[2018-09-27] MEDS: NICOTINE (21 MG/24 HR) PATCH TRANSDERM (08:42)
[2018-09-27 09:04] LABS: ANISOCYTOSIS 1+ (0-0); BAND NEUTROPHILS #M 0.2 10^3/ul (0.0-0.6); BAND NEUTROPHILS % (M) 2 % (0-4); BASOPHIL #M 0.1 10^3/ul (0.0-0.0); BASOPHILS % (M) 1 % (0-2); BURR CELLS 1+ (0-0); EOSINOPHILS % (M) 2 % (0-7); LYMPHOCYTES #M 1.4 10^3/ul (0.8-2.9); LYMPHOCYTES % (M) 11 % (15-51); MICROCYTOSIS 1+ (0-0); MONOCYTES % (M) 8 % (0-11); MYELOCYTES #M 0.3 10^3/ul (0.0-0.0); MYELOCYTES % (M) 3 % (0-0); PLATELET ESTIMATE NORMAL; POLYCHROMASIA 1+ (0-0); SEG NEUT #M 9.4 10^3/ul (1.6-7.5); SEGMENTED NEUTROPHILS (M) % 73 % (39-77); SMUDGE%M 15 % (0-0); SPHEROCYTES 1+ (0-0)
[2018-09-27] MEDS: SOD FERRIC GLUC COMPLX 125 MG in SOD CHLORIDE 0.9% 100 ML IVPB (12:34)
[2018-09-27] MEDS: HYDROCODONE/APAP (10/325) TAB PO (20:24)
[2018-09-28] MEDS: SOD CHLORIDE 0.9% 1,000 ML IV (02:26)
[2018-09-28] MEDS: LORAZEPAM 2 MG INJ IV ×3 (02:41→20:49)
[2018-09-28 05:27] LABS: ADD MAN DIFF? NO
[2018-09-28 05:39] LABS: WHITE BLOOD COUNT 13.4 10^3/ul (4.8-10.8)
[2018-09-28 05:39] LABS: ABNORMAL IP MESSAGE 1; BASOPHIL # 0.1 10^3/ul (0.0-0.1); BASOPHILS % 0.8 % (0.0-2.0); EOSINOPHILS # 0.4 10^3/ul (0.0-0.5); HEMATOCRIT 25.8 % (42.0-52.0); HEMOGLOBIN 8.1 g/dl (14.0-18.0); LYMPHOCYTES # 2.7 10^3/ul (0.8-2.9); MEAN CORPUSCULAR HEMOGLOBIN 25.2 pg (29.0-33.0); MEAN CORPUSCULAR HGB CONC 31.4 g/dl (32.0-37.0); MEAN CORPUSCULAR VOLUME 80.4 fl (82.0-101.0); MONOCYTE # 1.5 10^3/ul (0.3-0.9); NEUTROPHIL # 7.4 10^3/ul (1.6-7.5); NEUTROPHILS % 55.1 % (39.0-77.0); PLATELET COUNT 371 10^3/UL (140-415); POSITIVE DIFF @See below; RED BLOOD COUNT 3.21 10^6/ul (4.70-6.10); RED CELL DISTRIBUTION WIDTH 18.3 % (11.5-14.5)
[2018-09-28 06:21] LABS: ALBUMIN 2.8 g/dl (3.3-4.9); ANION GAP 6 (5-13); BLOOD UREA NITROGEN 43 mg/dl (7-20); CALCIUM 9.3 mg/dl (8.4-10.2); CARBON DIOXIDE 21 mmol/L (21-31); CHLORIDE 108 mmol/L (97-110); CREATININE 2.75 mg/dl (0.61-1.24); GLUCOSE 101 mg/dl (70-220); MAGNESIUM 1.9 mg/dl (1.7-2.5); PHOSPHORUS 4.1 mg/dl (2.5-4.9); POTASSIUM 4.6 mmol/L (3.5-5.1); SODIUM 135 mmol/L (135-144)
[2018-09-28] MEDS: MEROPENEM 500MG/50 ML (PMX) 50 ML IVPB ×2 (08:26→20:37)
[2018-09-28] MEDS: NICOTINE (21 MG/24 HR) PATCH TRANSDERM (08:26)
[2018-09-28] MEDS: RANITIDINE 150 MG TAB PO (08:26)
[2018-09-28] MEDS: HEPARIN 5,000 UNIT/1 ML VIAL SC ×2 (08:31→20:38)
[2018-09-28] MEDS: SOD FERRIC GLUC COMPLX 125 MG in SOD CHLORIDE 0.9% 100 ML IVPB (13:31)
[2018-09-29 06:04] LABS: ABNORMAL IP MESSAGE 1; HEMATOCRIT 26.7 % (42.0-52.0); HEMOGLOBIN 8.4 g/dl (14.0-18.0); MEAN CORPUSCULAR HEMOGLOBIN 25.6 pg (29.0-33.0); MEAN CORPUSCULAR HGB CONC 31.5 g/dl (32.0-37.0); MEAN CORPUSCULAR VOLUME 81.4 fl (82.0-101.0); MEAN PLATELET VOLUME 10.2 fl (7.4-10.4); PLATELET COUNT 405 10^3/UL (140-415); POSITIVE DIFF @See below; RED BLOOD COUNT 3.28 10^6/ul (4.70-6.10); RED CELL DISTRIBUTION WIDTH 18.4 % (11.5-14.5)
[2018-09-29 06:04] LABS: WHITE BLOOD COUNT 16.1 10^3/ul (4.8-10.8)
[2018-09-29 06:38] LABS: ADD MAN DIFF? YES
[2018-09-29 06:43] LABS: ALBUMIN 3.1 g/dl (3.3-4.9); ANION GAP 5 (5-13); BLOOD UREA NITROGEN 43 mg/dl (7-20); CALCIUM 9.6 mg/dl (8.4-10.2); CARBON DIOXIDE 21 mmol/L (21-31); CHLORIDE 108 mmol/L (97-110); CREATININE 2.62 mg/dl (0.61-1.24); GLUCOSE 86 mg/dl (70-220); MAGNESIUM 1.8 mg/dl (1.7-2.5); PHOSPHORUS 4.1 mg/dl (2.5-4.9); SODIUM 134 mmol/L (135-144)
[2018-09-29 07:56] LABS: ANISOCYTOSIS 1+ (0-0); BAND NEUTROPHILS #M 1.2 10^3/ul (0.0-0.6); BAND NEUTROPHILS % (M) 8 % (0-4); BASOPHIL #M 0.3 10^3/ul (0.0-0.0); BASOPHILS % (M) 2 % (0-2); BURR CELLS 1+ (0-0); EOSINOPHILS % (M) 5 % (0-7); LYMPHOCYTES #M 2.2 10^3/ul (0.8-2.9); LYMPHOCYTES % (M) 14 % (15-51); METAMYELOCYTES #M 0.1 10^3/ul (0.0-0.0); METAMYELOCYTES %M 1 % (0-0); MICROCYTOSIS 1+ (0-0); MONOCYTE #M 0.6 10^3/ul (0.3-0.9); MONOCYTES % (M) 4 % (0-11); MYELOCYTES #M 0.3 10^3/ul (0.0-0.0); MYELOCYTES % (M) 2 % (0-0); PLATELET ESTIMATE NORMAL; POLYCHROMASIA 2+ (0-0); SEG NEUT #M 10.5 10^3/ul (1.6-7.5); SEGMENTED NEUTROPHILS (M) % 64 % (39-77); SMUDGE%M 7 % (0-0)
[2018-09-29] MEDS: MEROPENEM 500MG/50 ML (PMX) 50 ML IVPB ×2 (08:45→20:30)
[2018-09-29] MEDS: RANITIDINE 150 MG TAB PO (08:45)
[2018-09-29] MEDS: NICOTINE (21 MG/24 HR) PATCH TRANSDERM (08:46)
[2018-09-29] MEDS: HEPARIN 5,000 UNIT/1 ML VIAL SC ×2 (08:48→20:34)
[2018-09-29] MEDS: SOD FERRIC GLUC COMPLX 125 MG in SOD CHLORIDE 0.9% 100 ML IVPB (12:24)
[2018-09-29] MEDS: MULTIVIT/CA CARB/B CMPLX/FA TAB PO (12:24)
[2018-09-29] MEDS: LORAZEPAM 2 MG INJ IV (18:02)
[2018-09-29] MEDS: morphine 2 MG INJ IV (20:47)
[2018-09-30] MEDS: LORAZEPAM 2 MG INJ IV (00:08)
[2018-09-30] MEDS: HYDROCODONE/APAP (10/325) TAB PO (04:40)
[2018-09-30 06:29] LABS: ABNORMAL IP MESSAGE 1; HEMATOCRIT 28.2 % (42.0-52.0); HEMOGLOBIN 8.7 g/dl (14.0-18.0); MEAN CORPUSCULAR HEMOGLOBIN 25.5 pg (29.0-33.0); MEAN CORPUSCULAR HGB CONC 30.9 g/dl (32.0-37.0); MEAN CORPUSCULAR VOLUME 82.7 fl (82.0-101.0); PLATELET COUNT 437 10^3/UL (140-415); POSITIVE DIFF @See below; RED BLOOD COUNT 3.41 10^6/ul (4.70-6.10); RED CELL DISTRIBUTION WIDTH 18.8 % (11.5-14.5)
[2018-09-30 06:29] LABS: WHITE BLOOD COUNT 16.7 10^3/ul (4.8-10.8)
[2018-09-30 06:45] LABS: ADD MAN DIFF? YES
[2018-09-30 06:48] LABS: ALBUMIN 3.3 g/dl (3.3-4.9); ANION GAP 8 (5-13); BLOOD UREA NITROGEN 48 mg/dl (7-20); CALCIUM 9.8 mg/dl (8.4-10.2); CARBON DIOXIDE 22 mmol/L (21-31); CHLORIDE 105 mmol/L (97-110); CREATININE 2.65 mg/dl (0.61-1.24); GLUCOSE 90 mg/dl (70-220); PHOSPHORUS 4.6 mg/dl (2.5-4.9); POTASSIUM 5.1 mmol/L (3.5-5.1); SODIUM 135 mmol/L (135-144)
[2018-09-30] MEDS: SOD CHLORIDE 0.9% 500 ML IV (08:35)
[2018-09-30] MEDS: MEROPENEM 500MG/50 ML (PMX) 50 ML IVPB ×2 (08:50→20:03)
[2018-09-30] MEDS: MULTIVIT/CA CARB/B CMPLX/FA TAB PO (08:51)
[2018-09-30] MEDS: RANITIDINE 150 MG TAB PO (08:51)
[2018-09-30] MEDS: NICOTINE (21 MG/24 HR) PATCH TRANSDERM (08:51)
[2018-09-30] MEDS: HEPARIN 5,000 UNIT/1 ML VIAL SC ×2 (08:55→20:07)
[2018-09-30 09:09] LABS: ANISOCYTOSIS 2+ (0-0); BAND NEUTROPHILS #M 0.3 10^3/ul (0.0-0.6); BAND NEUTROPHILS % (M) 2 % (0-4); BURR CELLS 2+ (0-0); LYMPHOCYTES #M 6.1 10^3/ul (0.8-2.9); LYMPHOCYTES % (M) 37 % (15-51); METAMYELOCYTES #M 0.3 10^3/ul (0.0-0.0); METAMYELOCYTES %M 2 % (0-0); MICROCYTOSIS 1+ (0-0); MONOCYTE #M 1.3 10^3/ul (0.3-0.9); MONOCYTES % (M) 8 % (0-11); MYELOCYTES #M 1.1 10^3/ul (0.0-0.0); MYELOCYTES % (M) 7 % (0-0); PLATELET ESTIMATE NORMAL; POIKILOCYTOSIS 2+ (0-0); POLYCHROMASIA 3+ (0-0); SEG NEUT #M 7.4 10^3/ul (1.6-7.5); SEGMENTED NEUTROPHILS (M) % 44 % (39-77); SMUDGE%M 4 % (0-0)
[2018-09-30] MEDS: LORAZEPAM 0.5 MG TAB PO ×2 (14:14→20:06)
[2018-10-01] MEDS: HYDROCODONE/APAP (10/325) TAB PO (01:18)
[2018-10-01 05:06] LABS: ADD MAN DIFF? NO
[2018-10-01 05:07] LABS: WHITE BLOOD COUNT 16.9 10^3/ul (4.8-10.8)
[2018-10-01 05:07] LABS: ABNORMAL IP MESSAGE 1; BASOPHIL # 0.1 10^3/ul (0.0-0.1); BASOPHILS % 0.8 % (0.0-2.0); EOSINOPHILS # 0.4 10^3/ul (0.0-0.5); EOSINOPHILS % 2.1 % (0.0-7.0); HEMATOCRIT 28.2 % (42.0-52.0); HEMOGLOBIN 8.9 g/dl (14.0-18.0); LYMPHOCYTES # 4.1 10^3/ul (0.8-2.9); LYMPHOCYTES % 24.2 % (15.0-51.0); MEAN CORPUSCULAR HEMOGLOBIN 25.6 pg (29.0-33.0); MEAN CORPUSCULAR HGB CONC 31.6 g/dl (32.0-37.0); MONOCYTE # 1.5 10^3/ul (0.3-0.9); MONOCYTES % 8.9 % (0.0-11.0); NEUTROPHILS % 53.3 % (39.0-77.0); PLATELET COUNT 428 10^3/UL (140-415); POSITIVE DIFF @See below; RED BLOOD COUNT 3.48 10^6/ul (4.70-6.10)
[2018-10-01 05:35] LABS: ALBUMIN 3.1 g/dl (3.3-4.9); ANION GAP 6 (5-13); BLOOD UREA NITROGEN 51 mg/dl (7-20); CALCIUM 9.6 mg/dl (8.4-10.2); CARBON DIOXIDE 25 mmol/L (21-31); CHLORIDE 105 mmol/L (97-110); CREATININE 2.44 mg/dl (0.61-1.24); GLUCOSE 103 mg/dl (70-220); PHOSPHORUS 4.4 mg/dl (2.5-4.9); POTASSIUM 4.8 mmol/L (3.5-5.1); SODIUM 136 mmol/L (135-144)
[2018-10-01 07:14] LABS: ANISOCYTOSIS 1+ (0-0); BAND NEUTROPHILS % (M) 6 % (0-4); BURR CELLS 1+ (0-0); EOSINOPHILS % (M) 5 % (0-7); LYMPHOCYTES #M 2.1 10^3/ul (0.8-2.9); LYMPHOCYTES % (M) 13 % (15-51); MICROCYTOSIS 1+ (0-0); MONOCYTE #M 1.6 10^3/ul (0.3-0.9); MONOCYTES % (M) 10 % (0-11); MYELOCYTES #M 0.6 10^3/ul (0.0-0.0); MYELOCYTES % (M) 4 % (0-0); PLATELET ESTIMATE NORMAL; POLYCHROMASIA 1+ (0-0); REACTIVE LYMPHOCYTES% (M) 6 % (0-0); SEG NEUT #M 9.6 10^3/ul (1.6-7.5); SEGMENTED NEUTROPHILS (M) % 56 % (39-77); SMUDGE%M 39 % (0-0)
[2018-10-01] MEDS: MULTIVIT/CA CARB/B CMPLX/FA TAB PO (08:22)
[2018-10-01] MEDS: RANITIDINE 150 MG TAB PO (08:22)
[2018-10-01] MEDS: MEROPENEM 500MG/50 ML (PMX) 50 ML IVPB ×2 (08:22→22:11)
[2018-10-01] MEDS: NICOTINE (21 MG/24 HR) PATCH TRANSDERM (08:23)
[2018-10-01] MEDS: HEPARIN 5,000 UNIT/1 ML VIAL SC ×2 (08:34→21:54)
[2018-10-01] MEDS: LORAZEPAM 0.5 MG TAB PO ×2 (12:04→21:54)
[2018-10-01 17:29] LABS: PROCALCITONIN 0.24 ng/mL (0.00-0.10)
[2018-10-02] MEDS: HYDROCODONE/APAP (10/325) TAB PO (00:29)
[2018-10-02] MEDS: CALCIUM CARBONATE 500 MG CHEW TAB PO (04:56)
[2018-10-02 05:29] LABS: ADD MAN DIFF? NO
[2018-10-02 05:35] LABS: HEMATOCRIT 29.2 % (42.0-52.0); HEMOGLOBIN 8.9 g/dl (14.0-18.0)
[2018-10-02 05:35] LABS: WHITE BLOOD COUNT 17.5 10^3/ul (4.8-10.8)
[2018-10-02 05:36] LABS: ABNORMAL IP MESSAGE 1; BASOPHIL # 0.2 10^3/ul (0.0-0.1); EOSINOPHILS # 0.3 10^3/ul (0.0-0.5); EOSINOPHILS % 1.7 % (0.0-7.0); LYMPHOCYTES # 4.7 10^3/ul (0.8-2.9); MEAN CORPUSCULAR HEMOGLOBIN 25.4 pg (29.0-33.0); MEAN CORPUSCULAR HGB CONC 30.5 g/dl (32.0-37.0); MEAN CORPUSCULAR VOLUME 83.4 fl (82.0-101.0); MEAN PLATELET VOLUME 9.8 fl (7.4-10.4); MONOCYTE # 1.4 10^3/ul (0.3-0.9); MONOCYTES % 7.8 % (0.0-11.0); NEUTROPHIL # 9.4 10^3/ul (1.6-7.5); NEUTROPHILS % 53.7 % (39.0-77.0); PLATELET COUNT 420 10^3/UL (140-415); POSITIVE DIFF @See below; RED CELL DISTRIBUTION WIDTH 19.3 % (11.5-14.5)
[2018-10-02 06:02] LABS: ALBUMIN 3.3 g/dl (3.3-4.9); ANION GAP 8 (5-13); BLOOD UREA NITROGEN 57 mg/dl (7-20); CALCIUM 9.7 mg/dl (8.4-10.2); CARBON DIOXIDE 25 mmol/L (21-31); CHLORIDE 103 mmol/L (97-110); CREATININE 2.48 mg/dl (0.61-1.24); GLUCOSE 118 mg/dl (70-220); PHOSPHORUS 4.5 mg/dl (2.5-4.9); POTASSIUM 4.8 mmol/L (3.5-5.1); SODIUM 136 mmol/L (135-144)
[2018-10-02 08:13] LABS: ANISOCYTOSIS 1+ (0-0); BAND NEUTROPHILS #M 0.3 10^3/ul (0.0-0.6); BAND NEUTROPHILS % (M) 2 % (0-4); BASOPHIL #M 0.1 10^3/ul (0.0-0.0); BASOPHILS % (M) 1 % (0-2); EOSINOPHILS % (M) 3 % (0-7); LYMPHOCYTES #M 5.4 10^3/ul (0.8-2.9); LYMPHOCYTES % (M) 31 % (15-51); METAMYELOCYTES #M 0.7 10^3/ul (0.0-0.0); METAMYELOCYTES %M 4 % (0-0); MICROCYTOSIS 1+ (0-0); MONOCYTE #M 0.5 10^3/ul (0.3-0.9); MONOCYTES % (M) 3 % (0-11); MYELOCYTES #M 0.1 10^3/ul (0.0-0.0); MYELOCYTES % (M) 1 % (0-0); PLATELET ESTIMATE NORMAL; POLYCHROMASIA 1+ (0-0); SEG NEUT #M 9.7 10^3/ul (1.6-7.5); SEGMENTED NEUTROPHILS (M) % 55 % (39-77); SMUDGE%M 13 % (0-0)
[2018-10-02] MEDS: RANITIDINE 150 MG TAB PO (09:27)
[2018-10-02] MEDS: MULTIVIT/CA CARB/B CMPLX/FA TAB PO (09:27)
[2018-10-02] MEDS: HEPARIN 5,000 UNIT/1 ML VIAL SC ×2 (09:28→21:24)
[2018-10-02] MEDS: NICOTINE (21 MG/24 HR) PATCH TRANSDERM (09:28)
[2018-10-02] MEDS: MEROPENEM 500MG/50 ML (PMX) 50 ML IVPB ×2 (09:30→21:15)
[2018-10-02] MEDS: LORAZEPAM 0.5 MG TAB PO ×2 (10:08→21:15)
[2018-10-03] MEDS: morphine 2 MG INJ IV (00:25)
[2018-10-03] MEDS: CALCIUM CARBONATE 500 MG CHEW TAB PO (02:14)
[2018-10-03 06:19] LABS: ADD MAN DIFF? NO
[2018-10-03 06:34] LABS: ABNORMAL IP MESSAGE 1; BASOPHIL # 0.2 10^3/ul (0.0-0.1); EOSINOPHILS # 0.2 10^3/ul (0.0-0.5); EOSINOPHILS % 1.4 % (0.0-7.0); HEMATOCRIT 29.3 % (42.0-52.0); HEMOGLOBIN 9.1 g/dl (14.0-18.0); LYMPHOCYTES # 4.7 10^3/ul (0.8-2.9); LYMPHOCYTES % 29.9 % (15.0-51.0); MEAN CORPUSCULAR HEMOGLOBIN 25.6 pg (29.0-33.0); MEAN CORPUSCULAR HGB CONC 31.1 g/dl (32.0-37.0); MEAN CORPUSCULAR VOLUME 82.5 fl (82.0-101.0); MONOCYTE # 1.5 10^3/ul (0.3-0.9); MONOCYTES % 9.4 % (0.0-11.0); NEUTROPHIL # 8.1 10^3/ul (1.6-7.5); NEUTROPHILS % 51.3 % (39.0-77.0); PLATELET COUNT 419 10^3/UL (140-415); POSITIVE DIFF @See below; RED BLOOD COUNT 3.55 10^6/ul (4.70-6.10); RED CELL DISTRIBUTION WIDTH 19.5 % (11.5-14.5)
[2018-10-03 06:34] LABS: WHITE BLOOD COUNT 15.9 10^3/ul (4.8-10.8)
[2018-10-03 06:57] LABS: ANION GAP 8 (5-13); Estimated GFR 24 mL/min (>60)
[2018-10-03 07:09] LABS: BLOOD UREA NITROGEN 60 mg/dl (7-20); CALCIUM 9.9 mg/dl (8.4-10.2); CARBON DIOXIDE 25 mmol/L (21-31); CHLORIDE 103 mmol/L (97-110); GLUCOSE 85 mg/dl (70-220); PHOSPHORUS 4.7 mg/dl (2.5-4.9); SODIUM 136 mmol/L (135-144)
[2018-10-03 08:07] LABS: ANISOCYTOSIS 1+ (0-0); BAND NEUTROPHILS #M 0.4 10^3/ul (0.0-0.6); BAND NEUTROPHILS % (M) 3 % (0-4); BASOPHIL #M 0.1 10^3/ul (0.0-0.0); BASOPHILS % (M) 1 % (0-2); GIANT THROMBO% (M) 1 % (0-0); LYMPHOCYTES #M 5.5 10^3/ul (0.8-2.9); LYMPHOCYTES % (M) 35 % (15-51); MICROCYTOSIS 1+ (0-0); MONOCYTE #M 0.6 10^3/ul (0.3-0.9); MONOCYTES % (M) 4 % (0-11); MYELOCYTES #M 0.7 10^3/ul (0.0-0.0); MYELOCYTES % (M) 5 % (0-0); PLATELET ESTIMATE NORMAL; POIKILOCYTOSIS 1+ (0-0); POLYCHROMASIA 3+ (0-0); REACTIVE LYMPHOCYTES #M 1.2 10^3/ul (0.0-0.0); REACTIVE LYMPHOCYTES% (M) 8 % (0-0); SEG NEUT #M 7.1 10^3/ul (1.6-7.5); SEGMENTED NEUTROPHILS (M) % 44 % (39-77); SMUDGE%M 13 % (0-0)
[2018-10-03] MEDS: RANITIDINE 150 MG TAB PO (08:16)
[2018-10-03] MEDS: MULTIVIT/CA CARB/B CMPLX/FA TAB PO (08:16)
[2018-10-03] MEDS: HEPARIN 5,000 UNIT/1 ML VIAL SC ×2 (08:17→20:01)
[2018-10-03] MEDS: NICOTINE (21 MG/24 HR) PATCH TRANSDERM (08:18)
[2018-10-03] MEDS: LORAZEPAM 0.5 MG TAB PO ×2 (14:04→23:20)
[2018-10-04 05:28] LABS: ADD MAN DIFF? NO
[2018-10-04 05:37] LABS: WHITE BLOOD COUNT 14.9 10^3/ul (4.8-10.8)
[2018-10-04 05:37] LABS: ABNORMAL IP MESSAGE 1; BASOPHIL # 0.2 10^3/ul (0.0-0.1); EOSINOPHILS # 0.2 10^3/ul (0.0-0.5); EOSINOPHILS % 1.4 % (0.0-7.0); HEMATOCRIT 29.4 % (42.0-52.0); HEMOGLOBIN 9.2 g/dl (14.0-18.0); LYMPHOCYTES # 4.9 10^3/ul (0.8-2.9); LYMPHOCYTES % 32.6 % (15.0-51.0); MEAN CORPUSCULAR HEMOGLOBIN 26.1 pg (29.0-33.0); MEAN CORPUSCULAR HGB CONC 31.3 g/dl (32.0-37.0); MEAN CORPUSCULAR VOLUME 83.5 fl (82.0-101.0); MONOCYTE # 1.4 10^3/ul (0.3-0.9); MONOCYTES % 9.2 % (0.0-11.0); NEUTROPHIL # 7.5 10^3/ul (1.6-7.5); NEUTROPHILS % 50.3 % (39.0-77.0); PLATELET COUNT 419 10^3/UL (140-415); POSITIVE DIFF @See below; RED BLOOD COUNT 3.52 10^6/ul (4.70-6.10); RED CELL DISTRIBUTION WIDTH 19.9 % (11.5-14.5)
[2018-10-04 06:03] LABS: ANION GAP 8 (5-13); BLOOD UREA NITROGEN 65 mg/dl (7-20); CALCIUM 9.8 mg/dl (8.4-10.2); CARBON DIOXIDE 26 mmol/L (21-31); CHLORIDE 103 mmol/L (97-110); CREATININE 2.46 mg/dl (0.61-1.24); Estimated GFR 27 mL/min (>60); GLUCOSE 102 mg/dl (70-220); MAGNESIUM 2.1 mg/dl (1.7-2.5); PHOSPHORUS 4.7 mg/dl (2.5-4.9); POTASSIUM 4.7 mmol/L (3.5-5.1); SODIUM 137 mmol/L (135-144)
[2018-10-04 06:55] LABS: ANISOCYTOSIS 1+ (0-0); BAND NEUTROPHILS #M 1.1 10^3/ul (0.0-0.6); BAND NEUTROPHILS % (M) 8 % (0-4); EOSINOPHILS % (M) 5 % (0-7); LYMPHOCYTES #M 3.2 10^3/ul (0.8-2.9); LYMPHOCYTES % (M) 22 % (15-51); METAMYELOCYTES #M 0.2 10^3/ul (0.0-0.0); METAMYELOCYTES %M 2 % (0-0); MICROCYTOSIS 1+ (0-0); MONOCYTE #M 0.8 10^3/ul (0.3-0.9); MONOCYTES % (M) 6 % (0-11); MYELOCYTES #M 0.4 10^3/ul (0.0-0.0); MYELOCYTES % (M) 3 % (0-0); PLATELET ESTIMATE NORMAL; POLYCHROMASIA 1+ (0-0); SEG NEUT #M 8.2 10^3/ul (1.6-7.5); SEGMENTED NEUTROPHILS (M) % 54 % (39-77); SMUDGE%M 6 % (0-0)
[2018-10-04] MEDS: NICOTINE (21 MG/24 HR) PATCH TRANSDERM (09:06)
[2018-10-04] MEDS: RANITIDINE 150 MG TAB PO (09:06)
[2018-10-04] MEDS: MULTIVIT/CA CARB/B CMPLX/FA TAB PO (09:06)
[2018-10-04] MEDS: HEPARIN 5,000 UNIT/1 ML VIAL SC ×2 (09:10→20:18)
[2018-10-04] MEDS: CALCIUM CARBONATE 500 MG CHEW TAB PO (18:53)
[2018-10-04] MEDS: LORAZEPAM 0.5 MG TAB PO (22:37)
[2018-10-05] MEDS: HYDROCODONE/APAP (10/325) TAB PO (01:38)
[2018-10-05 05:39] LABS: ADD MAN DIFF? NO
[2018-10-05 05:40] LABS: WHITE BLOOD COUNT 13.3 10^3/ul (4.8-10.8)
[2018-10-05 05:40] LABS: BASOPHIL # 0.1 10^3/ul (0.0-0.1); EOSINOPHILS # 0.2 10^3/ul (0.0-0.5); EOSINOPHILS % 1.5 % (0.0-7.0); HEMATOCRIT 30.3 % (42.0-52.0); HEMOGLOBIN 9.4 g/dl (14.0-18.0); LYMPHOCYTES # 4.6 10^3/ul (0.8-2.9); MEAN CORPUSCULAR HEMOGLOBIN 26.3 pg (29.0-33.0); MEAN CORPUSCULAR VOLUME 84.6 fl (82.0-101.0); MONOCYTE # 1.1 10^3/ul (0.3-0.9); MONOCYTES % 8.2 % (0.0-11.0); NEUTROPHIL # 6.6 10^3/ul (1.6-7.5); NEUTROPHILS % 49.9 % (39.0-77.0); PLATELET COUNT 402 10^3/UL (140-415); RED BLOOD COUNT 3.58 10^6/ul (4.70-6.10); RED CELL DISTRIBUTION WIDTH 19.9 % (11.5-14.5)
[2018-10-05 06:08] LABS: ANION GAP 9 (5-13); Estimated GFR 28 mL/min (>60)
[2018-10-05 06:12] LABS: BLOOD UREA NITROGEN 65 mg/dl (7-20); CALCIUM 9.8 mg/dl (8.4-10.2); CARBON DIOXIDE 26 mmol/L (21-31); CHLORIDE 103 mmol/L (97-110); GLUCOSE 165 mg/dl (70-220); MAGNESIUM 2.1 mg/dl (1.7-2.5); PHOSPHORUS 5.1 mg/dl (2.5-4.9); POTASSIUM 4.7 mmol/L (3.5-5.1); SODIUM 138 mmol/L (135-144)
[2018-10-05] MEDS: MULTIVIT/CA CARB/B CMPLX/FA TAB PO (08:36)
[2018-10-05] MEDS: RANITIDINE 150 MG TAB PO (08:36)
[2018-10-05] MEDS: HEPARIN 5,000 UNIT/1 ML VIAL SC ×2 (08:37→20:00)
[2018-10-05] MEDS: NICOTINE (21 MG/24 HR) PATCH TRANSDERM (08:37)
[2018-10-05] MEDS: ACETAMINOPHEN 325 MG TAB PO (19:59)
[2018-10-05] MEDS: LORAZEPAM 0.5 MG TAB PO (23:37)
[2018-10-06] MEDS: HYDROCODONE/APAP (10/325) TAB PO ×3 (00:39→23:21)
[2018-10-06 06:05] LABS: ADD MAN DIFF? NO
[2018-10-06 06:18] LABS: WHITE BLOOD COUNT 13.4 10^3/ul (4.8-10.8)
[2018-10-06 06:18] LABS: ABNORMAL IP MESSAGE 1; BASOPHIL # 0.1 10^3/ul (0.0-0.1); EOSINOPHILS # 0.2 10^3/ul (0.0-0.5); EOSINOPHILS % 1.6 % (0.0-7.0); HEMATOCRIT 29.3 % (42.0-52.0); LYMPHOCYTES % 37.6 % (15.0-51.0); MEAN CORPUSCULAR HEMOGLOBIN 25.9 pg (29.0-33.0); MEAN CORPUSCULAR HGB CONC 30.7 g/dl (32.0-37.0); MEAN CORPUSCULAR VOLUME 84.4 fl (82.0-101.0); MEAN PLATELET VOLUME 10.5 fl (7.4-10.4); MONOCYTE # 1.4 10^3/ul (0.3-0.9); MONOCYTES % 10.6 % (0.0-11.0); NEUTROPHIL # 6.1 10^3/ul (1.6-7.5); NEUTROPHILS % 45.5 % (39.0-77.0); PLATELET COUNT 361 10^3/UL (140-415); POSITIVE DIFF @See below; RED BLOOD COUNT 3.47 10^6/ul (4.70-6.10); RED CELL DISTRIBUTION WIDTH 19.9 % (11.5-14.5)
[2018-10-06 07:10] LABS: ANION GAP 7 (5-13); BLOOD UREA NITROGEN 63 mg/dl (7-20); CALCIUM 9.6 mg/dl (8.4-10.2); CARBON DIOXIDE 25 mmol/L (21-31); CHLORIDE 105 mmol/L (97-110); CREATININE 2.31 mg/dl (0.61-1.24); Estimated GFR 29 mL/min (>60); GLUCOSE 105 mg/dl (70-220); MAGNESIUM 2.1 mg/dl (1.7-2.5); PHOSPHORUS 5.7 mg/dl (2.5-4.9); POTASSIUM 4.3 mmol/L (3.5-5.1); SODIUM 137 mmol/L (135-144)
[2018-10-06] MEDS: MULTIVIT/CA CARB/B CMPLX/FA TAB PO (08:58)
[2018-10-06] MEDS: RANITIDINE 150 MG TAB PO (08:58)
[2018-10-06] MEDS: NICOTINE (21 MG/24 HR) PATCH TRANSDERM (08:59)
[2018-10-06] MEDS: HEPARIN 5,000 UNIT/1 ML VIAL SC ×2 (09:00→20:07)
[2018-10-06] MEDS: LORAZEPAM 0.5 MG TAB PO ×2 (11:41→20:05)
[2018-10-07 05:21] LABS: ADD MAN DIFF? NO
[2018-10-07 05:29] LABS: BASOPHIL # 0.1 10^3/ul (0.0-0.1); BASOPHILS % 1.1 % (0.0-2.0); EOSINOPHILS # 0.3 10^3/ul (0.0-0.5); EOSINOPHILS % 2.2 % (0.0-7.0); HEMATOCRIT 28.8 % (42.0-52.0); HEMOGLOBIN 8.9 g/dl (14.0-18.0); LYMPHOCYTES # 4.8 10^3/ul (0.8-2.9); LYMPHOCYTES % 39.8 % (15.0-51.0); MEAN CORPUSCULAR HEMOGLOBIN 25.9 pg (29.0-33.0); MEAN CORPUSCULAR HGB CONC 30.9 g/dl (32.0-37.0); MEAN PLATELET VOLUME 10.5 fl (7.4-10.4); MONOCYTE # 1.5 10^3/ul (0.3-0.9); MONOCYTES % 12.3 % (0.0-11.0); NEUTROPHILS % 41.1 % (39.0-77.0); PLATELET COUNT 349 10^3/UL (140-415); RED BLOOD COUNT 3.43 10^6/ul (4.70-6.10)
[2018-10-07 05:29] LABS: WHITE BLOOD COUNT 12.1 10^3/ul (4.8-10.8)
[2018-10-07 05:53] LABS: ANION GAP 8 (5-13); BLOOD UREA NITROGEN 55 mg/dl (7-20); CALCIUM 9.6 mg/dl (8.4-10.2); CARBON DIOXIDE 23 mmol/L (21-31); CHLORIDE 107 mmol/L (97-110); CREATININE 2.33 mg/dl (0.61-1.24); Estimated GFR 29 mL/min (>60); GLUCOSE 85 mg/dl (70-220); MAGNESIUM 2.1 mg/dl (1.7-2.5); POTASSIUM 4.6 mmol/L (3.5-5.1); SODIUM 138 mmol/L (135-144)
[2018-10-07] MEDS: MULTIVIT/CA CARB/B CMPLX/FA TAB PO (08:09)
[2018-10-07] MEDS: HEPARIN 5,000 UNIT/1 ML VIAL SC ×2 (08:10→21:08)
[2018-10-07] MEDS: NICOTINE (21 MG/24 HR) PATCH TRANSDERM (08:10)
[2018-10-07] MEDS: RANITIDINE 150 MG TAB PO (08:10)
[2018-10-07] MEDS: ZOLPIDEM 5 MG TAB PO (21:08)
[2018-10-07 22:18] LABS: PSA, FREE 0.1 ng/mL
[2018-10-08] MEDS: LORAZEPAM 0.5 MG TAB PO ×2 (00:05→12:23)
[2018-10-08] MEDS: CALCIUM CARBONATE 500 MG CHEW TAB PO (03:47)
[2018-10-08 05:39] LABS: ADD MAN DIFF? NO
[2018-10-08 05:48] LABS: WHITE BLOOD COUNT 12.2 10^3/ul (4.8-10.8)
[2018-10-08 05:48] LABS: ABNORMAL IP MESSAGE 1; BASOPHIL # 0.1 10^3/ul (0.0-0.1); BASOPHILS % 1.1 % (0.0-2.0); EOSINOPHILS # 0.3 10^3/ul (0.0-0.5); HEMATOCRIT 29.5 % (42.0-52.0); LYMPHOCYTES # 4.7 10^3/ul (0.8-2.9); LYMPHOCYTES % 38.9 % (15.0-51.0); MEAN CORPUSCULAR HGB CONC 30.5 g/dl (32.0-37.0); MEAN CORPUSCULAR VOLUME 85.3 fl (82.0-101.0); MEAN PLATELET VOLUME 10.3 fl (7.4-10.4); MONOCYTE # 1.5 10^3/ul (0.3-0.9); MONOCYTES % 12.6 % (0.0-11.0); NEUTROPHIL # 5.2 10^3/ul (1.6-7.5); NEUTROPHILS % 42.5 % (39.0-77.0); PLATELET COUNT 332 10^3/UL (140-415); POSITIVE DIFF @See below; RED BLOOD COUNT 3.46 10^6/ul (4.70-6.10); RED CELL DISTRIBUTION WIDTH 20.1 % (11.5-14.5)
[2018-10-08 06:12] LABS: ALBUMIN 3.5 g/dl (3.3-4.9); ANION GAP 10 (5-13); BLOOD UREA NITROGEN 53 mg/dl (7-20); CALCIUM 9.7 mg/dl (8.4-10.2); CARBON DIOXIDE 23 mmol/L (21-31); CHLORIDE 106 mmol/L (97-110); CREATININE 2.63 mg/dl (0.61-1.24); GLUCOSE 102 mg/dl (70-220); PHOSPHORUS 5.3 mg/dl (2.5-4.9); POTASSIUM 4.4 mmol/L (3.5-5.1); SODIUM 139 mmol/L (135-144)
[2018-10-08] MEDS: NICOTINE (21 MG/24 HR) PATCH TRANSDERM (08:57)
[2018-10-08] MEDS: MULTIVIT/CA CARB/B CMPLX/FA TAB PO (08:57)
[2018-10-08] MEDS: RANITIDINE 150 MG TAB PO (08:57)
[2018-10-08] MEDS: HEPARIN 5,000 UNIT/1 ML VIAL SC (08:58)
[2018-10-08] MEDS: NACL 0.9% 3 ML SYG IV (08:59)
== END 2018-10-08 14:55 | disposition home or self-care (01) | DRG 690 ==
LOC: MS3 09-28 02:25 → E/R 03:15 → MS3 05:22
DX: N13.6 Pyonephrosis (principal); N11.1 Chronic obstructive pyelonephritis; E87.2 Acidosis; N17.9 Acute kidney failure, unspecified; I12.9 Hypertensive chronic kidney disease with stage 1 through stage 4 chronic kidney disease, or unspecified chronic kidney disease; N18.4 Chronic kidney disease, stage 4 (severe); Z87.710 Personal history of (corrected) hypospadias; Z59.0 Homelessness; R33.9 Retention of urine, unspecified; E04.1 Nontoxic single thyroid nodule; D63.1 Anemia in chronic kidney disease; Z72.0 Tobacco use; B96.5 Pseudomonas (aeruginosa) (mallei) (pseudomallei) as the cause of diseases classified elsewhere; B96.89 Other specified bacterial agents as the cause of diseases classified elsewhere; N31.2 Flaccid neuropathic bladder, not elsewhere classified; Z16.24 Resistance to multiple antibiotics
CPT/HCPCS: 36415; 71045; 76775; 78806; 80048; 80053; 80069; 81001; 81003; 82043; 82436; 82728; 83540; 83605; 83735; 83880; 84100; 84133; 84145; 84153; 84154; 84155; 84300; 85025; 87040-91; 87086; 94664; 96374; 99285-25